=== PATIENT | male | born 1960 | race Caucasian/White ===

== ENCOUNTER 2017-01-29 08:14 | Observation (INO) | payer OTHER ==
--- NOTE | ~2017-01-29 | DS ---
PATIENT:DASHA BETH JR :64 MEDICAL RECORD: [id number] DISCHARGE SUMMARY ADMISSION DATE: 01/29/17 DISCHARGE DATE: DATE OF SERVICE: 01/30/2017 DIAGNOSES: 1. Angina. 2. Coronary artery disease. 3. PTCA and stent of RCA and left circumflex on this admission. HOSPITAL COURSE: Mr. Beth presents with anginal symptomatology, found to have 2-vessel coronary artery disease of the RCA and the left circumflex. He underwent successful PTCA and stent of above territories. Discharged home with the addition of aspirin and Plavix to his medical regimen. He will follow up with [facility] in one month. TRANSINT:[id number] Voice Confirmation ID: [id number] DOCUMENT ID: [id number] KAYLEN RAMIREZ MD CC: [id number] DICTATION DATE: 01/30/17 1024 DATABASE ADMIN: 01/30/17 1150 ADM IN [id number] [place] [address]
--- NOTE | ~2017-01-29 | HP ---
PATIENT: DASHA BETH JR MEDICAL RECORD: [id number] ACCOUNT: [id number] LOCATION:[address] : 64 ADMISSION DATE: 01/29/17 HISTORY AND PHYSICAL EXAMINATION DIAGNOSIS: Unstable angina. HISTORY OF PRESENT ILLNESS: This is a gentleman with no previous cardiac history. He began having chest pain, chest discomfort compatible with angina last night. His pain has persisted all evening. He presents to the Emergency Room, has ST-T abnormalities anteriorly. He continues to have episodes of chest pain. PHYSICAL EXAMINATION: GENERAL APPEARANCE: Well-nourished, well-developed, appears stated age. Level of distress, comfortable. PSYCHIATRIC: Mental status, alert, normal affect. Orientation, oriented to time, place and person. EYES: Lids and conjunctiva, noninjected. No discharge, no pallor. ENT: Lips, teeth, gums, normal dentition. Oropharynx, no cyanosis, no pallor. NECK: Carotid arteries, bilateral normal upstroke, no bruits, no thrills. JUGULAR VEINS: No jugular venous pressure or distention. CERVICAL LYMPH NODES: Nontender, nonenlarged. THYROID: Not enlarged. Nontender. No nodules. LUNGS: Respiratory effort, unlabored. CHEST: Normal curvature. No thoracic deformity. No chest wall tenderness. Percussion, resonant. Auscultation, clear. No wheezes, no rales, no rhonchi. CARDIOVASCULAR: Precordial exam, nondisplaced. No heaves or pericardial thrills. Rate and rhythm, regular. Heart sounds, normal S1, normal S2. No S3, no gallop, no rub. Systolic murmur, not heard. Diastolic murmur, not heard. EXTREMITIES: No cyanosis, no edema. Peripheral pulses, full and equal in all extremities, except as noted. No bruits appreciated. ABDOMEN: Soft, nondistended. Normal aorta. No bruit. Nontender. No masses. Liver, nontender, no hepatomegaly. Spleen, nontender, no splenomegaly. MUSCULOSKELETAL: No joint tenderness. No joint swelling. No erythema. NEUROLOGICAL: Normal gait, normal strength, normal tone. SKIN: Warm and dry. REVIEW OF SYSTEMS: The patient reports easy bruising but reports no swollen glands. The patient reports no fever, no night sweats, no significant weight gain, no significant weight loss. No significant exercise tolerance. The patient reports no dry eyes, no irritation, no vision change. Patient reports no difficulty hearing and no ear pain. Patient reports no frequent nose bleeds or nose and sinus problems. Patient reports no arm pain on exertion. No shortness of breath while lying down. No history of heart murmur. Patient reports no cough, no wheezing or coughing up blood. Patient reports no abdominal pain, no vomiting. Normal appetite. No diarrhea and not vomiting blood. No nausea and no constipation. Patient reports no incontinence. No difficulty urinating. No hematuria. No increased frequency. Patient reports no muscle aches. No weakness, no arthralgias, no back pain. No swelling of the extremities. Patient reports no abnormal mole, no jaundice, no rashes. Reports no loss of consciousness. No weakness and no numbness. No seizures, dizziness, or headaches. The patient reports no depression, no sleep disturbance, feeling safe in a relationship and no alcohol abuse. Patient reports on fatigue. Reports no runny nose or sinus pressure. No itching, no hives, and no frequent HISTORY AND PHYSICAL [id number] DASHA BETH JR sneezing. OVERALL IMPRESSION: Classic anginal chest discomfort in unstable fashion. We will proceed with coronary angiography. Further care depends upon findings of the angiography. TRANSINT:[id number] Voice Confirmation ID: [id number] DOCUMENT ID: [id number] KAYLEN RAMIREZ MD CC: [id number] DICTATION DATE: 01/29/17 1258 WAITANGI TRIBUNAL MEMBER: 01/29/17 1330 ADM IN [id number] [place] [address]
--- NOTE | ~2017-01-29 | OP ---
PATIENT NAME: DASHA BETH JR MEDICAL RECORD: [id number] :64 LOCATION:[address] ADMISSION DATE:01/29/17 SURGEON: KAYLEN RAMIREZ MD DATE OF OPERATION: 01/29/2017 PROCEDURES: 1. PTCA and stent, RCA. 2. Left heart catheterization. 3. Selective coronary angiography. 4. Left ventriculogram. INDICATION: Chest pain compatible with angina. PROCEDURE IN DETAIL: After informed consent was obtained and after detailed explanation of risks and benefits as well as alternative therapies, the patient elected to proceed with angiogram and angioplasty. The right radial area was prepped and draped in normal sterile fashion. The right radial artery was cannulated via modified Seldinger technique with placement of 6-Swedish sheath. All catheters were exchanged through this sheath. FINDINGS: The left ventriculogram was performed in standard 30-degree ARTEAGA view, revealed good cardiac wall motion throughout all segments. Overall ejection fraction estimated at 60%. SELECTIVE CORONARY ANGIOGRAPHY: 1. Left main shows no significant angiographic disease. 2. Left anterior descending has lzna-wi-atfunvuf irregularities, but no flow-limiting stenosis. 3. Left circumflex has 90% stenosis of first obtuse marginal to ramus intermedius. 4. Right coronary has a long area of 80% stenosis in the mid vessel. PTCA AND STENT OF THE RIGHT CORONARY: The stent used was 3.0 x 26-mm Integrity. Result was 0% residual stenosis. OVERALL IMPRESSION: Successful PTCA and stent of right coronary artery, going from 80% initial stenosis to 0% residual. PLAN: PTCA and stent of the ramus intermedius in the near future. 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
--- NOTE | ~2017-01-29 | HEMODYNAMI ---
PATIENT:DASHA BETH JR MEDICAL RECORD: [id number] : 64 LOCATION:[address] [facility]# [id number] ADMISSION DATE: 01/29/17 Generatedon:01/30/201710:25 Patient name: DASHA BETH Patient #: [id number] : 1960 Date of study: 01/30/2017 Page: Of Hemodynamic Procedure Report Patient Data Patient Demographics Procedure consent was obtained First Name: DASHA Gender: Male Last Name: KIRIT Suffix: Jr Coy Initial: Tomeka : 1960 Patient #: [id number] Age: 56 year(s) Race: SSN: [id number] Ethnicity: or Additional ID: [id number] Contact details Address: [address] [place] [address] State: [place] City: [facility] [place] Zip code: [address] Past Medical History Allergies: No known allergies Admission Admission Data Admission Date: 01/29/2017 Admission Time: 12:22 Admit Source: Other Room #: D.2122 Lab Results Lab Result Date: 01/29/2017 Lab Result Time: 0:00 Biochemistry Name Units Result Min Max BUN mg/dl 6 -*(----)-- 7 18 Creatinine mg/dl 1 --(--*-)-- 0.6 1.3 CBC Name Units Result Min Max Hemoglobin g/dl 16.2 --(--*-)-- 13.5 17.5 Procedure Procedure Types Cath Procedure PCI Procedure Coronary Stent Initial Miscellaneous Procedures Moderate Sedation up to 15 minutes Procedure Description Procedure Date Procedure Date: 01/30/2017 Procedure Start Time: 10:04 Procedure End Time: 10:23 Procedure Staff Name Function Duy Thomason MD Performing Physician Sean Fitzgerald RN Nurse Maribell Malloy RT Monitor Oscar Mtz RT Scrub Camille Schafer RT Scrub Procedure Data Cath Procedure Fluoroscopy Diagnostic fluoroscopy Total fluoroscopy Time: 6.9 time: 6.9 min min Diagnostic fluoroscopy Total fluoroscopy dose: 491 dose: 491 mGy mGy Contrast Material Contrast Material Type Amount (ml) Isovue 300 70 Entry Location Entry Primary Successful Side Size Upsize Upsize Entry Closure Succes sful Closure Location (Fr) 1 (Fr) 2 (Fr) Remarks Device Remarks Femoral Right 6 Fr Exoseal artery Short Estimated blood loss: 10 ml Procedure Complications No complications Procedure Medications Medication Administration Route Dosage 0.9% NaCl I.V. 100 ml/hr Oxygen NC 2 l/min Heparin Flush Bag added to field 2 bags (1000units/500ml NS) Lidocaine 2% added to field 20 Versed I.V. 1 mg Fentanyl I.V. 50 mcg Fentanyl I.V. 50 mcg Versed I.V. 1 mg Fentanyl I.V. 50 mcg Heparin Bolus I.V. 4000 units Nitroglycerin IC/IA I.C. 200 mcg Fentanyl I.V. 50 mcg Hemodynamics Rest HGB: 16.2 (g/dl) Heart Rate: 64 (bpm) Snapshots Pre Cath Intra NCS Post Cath Vital Signs Time Heart Resp SPO2 etCO2 [id number] NIBP (mmHg) Rhythm Pain Sedation Rate (ipm) (%) (mmHg) (mmHg) Status Level (bpm) 9:56:19 69 19 99 0 0 142/93(118) NSR 0 (11) 10(A) , No pain 10:00:59 70 26 97 0 0 130/81(102) NSR 0 (11) 10(A) , No pain 10:05:38 80 15 96 0 0 125/73(109) NSR 0 (11) 10(A) , No pain 10:10:16 75 14 92 0 0 116/70(90) NSR 0 (11) 9(A) , No pain 10:14:57 76 16 91 0 0 101/62(87) NSR 0 (11) 9(A) , No pain 10:19:31 90 15 89 0 0 114/74(87) NSR 0 (11) 10(A) , No pain Medications Time Medication Route Dose Verified Delivered Reason Notes Effectiveness by by 9:57:39 0.9% NaCl I.V. 100 Sean Sean Per physician ml/hr Lia Fitzgerald RN RN 9:57:51 Oxygen NC 2 Sean Sean Per physician l/min Lia Fitzgerald RN RN 9:58:07 Heparin Flush added 2 Sean Sean used for Bag to bags Lortatyana Fitzgerald procedure (1000units/500ml [facility] RN RN NS) 9:58:19 Lidocaine 2% added 20ml Sean Sean for local to vial Lortatyana Fitzgerald anesthetic field RN RN 9:58:44 Versed I.V. 1 mg Sean Sean for sedation Lia Fitzgerald RN RN 9:59:01 Fentanyl I.V. 50 Sean Sean for sedation mcg Lia Fitzgerald RN RN 10:05:23 Fentanyl I.V. 50 Sean Sean for sedation mcg Lia Fitzgerald RN RN 10:05:32 Versed I.V. 1 mg Sean Sean for sedation Lia Fitzgerald RN RN 10:06:16 Fentanyl I.V. 50 Sean Sean for sedation mcg Lia Fitzgerald RN RN 10:07:56 Heparin Bolus I.V. 4000 Sean Sean for units Lia Fitzgerald anticoagulation RN RN 10:10:37 Nitroglycerin I.C. 200 Sean Duy for IC/IA mcg Lia delgado RN 10:20:39 Fentanyl I.V. 50 Sean Duy for sedation sofiya Thomason MD, RN Procedure Log Time Note 9:35:31 Oscar Mtz RT(R) sent for patient. Start room use. 9:46:53 Admit Source: Other 9:50:39 Time tracking: Regular hours 9:50:42 Plan of Care:Hemodynamics will remain stable., Cardiac rhythm will remain stable., Comfort level will be maintained., Respiratory function will remain adequate., Patient/ family verbilizes understanding of procedure., Procedure tolerated without complication., Recovers from procedure without complications.. 9:50:48 Patient received from PCU to CCL 1 Alert and oriented. Tansferred to table in Supine position. 9:50:49 Warm blankets applied, and xenia hugger turned on for patient comfort. 9:50:49 Correct patient and procedure confirmed by team. 9:50:51 Signed procedure consent form obtained from patient. 9:50:51 ECG and BP/O2 sat monitors applied to patient. 9:55:24 Vital chart was started 9:55:26 Baseline sample Acquired. 9:55:32 Rhythm: sinus rhythm 9:55:34 Full Disclosure recording started 9:55:42 H&P Date Dictated: 01/29/2017 Within 30 days and on chart.. 9:55:43 Pre-procedure instructions explained to patient. 9:55:46 Family in patients room. 9:55:48 Patient NPO since Midnight. 9:55:57 Is the patient allergic to Iodine/contrast media? No. 9:56:01 Is patient on blood thinner?Yes 9:56:04 ACC The patient was administered the following blood thiners within the last 24 hours: ACCPlavix 9:56:10 Patient diabetic? No. 9:56:18 Snore? Yes 9:56:19 Sleep apnea? Yes 9:56:26 Airway obstruction? Yes COPD 9:56:30 Dentures? No ? 9:56:36 Patient pain scale 0/10 ?. 9:56:41 IV patent on arrival in left hand with 0.9% NaCl at KVO. 9:56:51 Lab results completed and on chart. 9:56:55 Right groin area was prepped with chlora-prep and draped in sterile fashion 9:56:56 Alarms reviewed by R. N. 9:56:57 Sharps counted by scrub and verified by R.N. 9:56:59 Physician paged 9:56:59 Physician arrived 9:57:00 --------ALL STOP TIME OUT------ 9:57:00 Final Timeout: patient, procedure, and site verified with staff and physician. All members of the team are in agreement. 9:57:02 Right groin site verified by team. 9:57:08 Sedation plan: IV Moderate Sedation Versed, Fentanyl 9:57:25 Use device set Femoral PCI 9:57:27 Acist Syringe opened to sterile field. 9:57:27 Acist Hand Control opened to sterile field. 9:57:28 Bag Decanter opened to sterile field. 9:57:28 Medline Cath Pack opened to sterile field. 9:57:28 Terumo 6Fr [place] Sheath opened to sterile field. 9:57:29 St Timbo 260cm J .035 wire opened to sterile field. 9:57:29 Merit BasixCompak Inflation Kit opened to sterile field. 9:57:30 Acist Manifold opened to sterile field. 9:57:30 Tegaderm 4 x 4 opened to sterile field. 9:57:39 0.9% NaCl 100 ml/hr I.V. was administered by Sean Fitzgerald RN; Per physician; 9:57:51 Oxygen 2 l/min NC was administered by Sean Fitzgerald RN; Per physician; 9:58:07 Heparin Flush Bag (1000units/500ml NS) 2 bags added to field was administered by Sean Fitzgerald RN; used for procedure; 9:58:19 Lidocaine 2% 20ml vial added to field was administered by Sean Fitzgerald RN; for local anesthetic; 9:58:44 Versed 1 mg I.V. was administered by Sean Fitzgerald RN; for sedation; 9:59:01 Fentanyl 50 mcg I.V. was administered by Sean Fitzgerald RN; for sedation; 9:59:05 Cordis 6FR XBLAD 3.5 guide catheter opened to sterile field. 9:59:55 Ramos Whisper J 300cm 0.014 guide wire opened to sterile field. 10:01:35 Zero performed for pressure channel P1 10:01:47 Zero performed for pressure channel P1 10:03:41 Procedure started. 10:04:23 Local anesthetic to right femoral artery with Lidocaine 2% by Duy Thomason MD.INITIAL ACCESS ONLY 10:04:35 A 6 Fr Short sheath was inserted into the Right Femoral artery 10:05:23 Fentanyl 50 mcg I.V. was administered by Sean Fitzgerald RN; for sedation; 10:05:32 Versed 1 mg I.V. was administered by Sean Fitzgerald RN; for sedation; 10:05:57 6 Fr XBLAD 3.5 guide catheter was inserted over the wire 10:06:16 Fentanyl 50 mcg I.V. was administered by Sean Fitzgerald RN; for sedation; 10:06:56 Whisper wire advanced. 10:07:56 Heparin Bolus 4000 units I.V. was administered by Sean Fitzgerald RN; for anticoagulation; 10:08:50 Inflation Number: 1 A NellOne Therapeuticstronic Integrity 2.5 x 14 stent was prepped and advanced across the Ramus. The stent was deployed at 11 BROOK for 0:10 (min:sec). 10:10:37 Nitroglycerin IC/IA 200 mcg I.C. was administered by Duy Thomason MD; for vasodilation; 10:11:12 Ramos Fielder XT J 300cm 0.014 guide wire opened to sterile field. 10:11:37 Fielder wire advanced. 10:12:46 Stent catheter was removed intact over wire. 10:14:54 Inflation number: 2 A Euphora 1.5 x 12 balloon was prepped and advanced across the Ramus, then inflated to 17 BROOK for 0:10 (min:sec). 10:15:06 Inflation number: 3 The Euphora 1.5 x 12 balloon was reinflated across the Ramus, to 21 BROOK for 0:10 (min:sec). 10:15:23 Balloon removed over the wire. 10:15:28 Stent balloon re-inserted over wire. 10:17:34 Inflation number: 4 The stent balloon was then re-inflated across the Ramus to 7 BROOK for 0:10 (min:sec). 10:18:55 Cordis 6Fr Exoseal opened to sterile field. 10:19:01 Wire removed. 10:19:01 Guide catheter removed. 10:19:11 Sheath removed intact; hemostasis achieved with Exoseal to the Right Femoral artery. 10:19:15 Procedure ended.(Physican Out) 10:20:10 Fluoroscopy time 06.90 minutes. 10:20:15 Flurop Dose total: 491 10:20:15 Fluoroscopy dose: 491 mGy 10:20:23 Contrast amount:Isovue 300 70ml. 10:20:25 Sharps counted by scrub and verified by R.N. 10:20:39 Fentanyl 50 mcg I.V. was administered by Duy Thomason MD; for sedation; 10:20:55 Insertion/operative site no bleeding no hematoma. 10:21:03 Post right femoral artery:stable 10:21:12 Post-procedure physical assessment completed. ASA score P 2 - A patient with mild systemic disease as per Duy Thomason MD. 10:21:20 Post procedure rhythm: unchanged. 10:21:40 Estimated blood loss: 10 ml 10:21:43 Post procedure instruction explained to patient.Patient verbalizes understanding. 10:22:12 Procedure and supply charges have been captured, reviewed, submitted and are correct. 10:22:58 Procedure Complication : No complications 10:23:01 Vital chart was stopped 10:23:02 See physician's report for complete and final results. 10:23:06 Report given to [facility]. 10:23:12 Patient transfered to [facility] with Bed. 10:23:15 Procedure ended. 10:23:15 Full Disclosure recording stopped 10:23:17 End room use (Document Last) 10:24:43 ACC-PCI Only Patient was given prescriptions, or instructed by Duy Thomason MD to start/continue the following medications upon discharge: Plavix Intervention Summary Intervention Notes Time ActionType Lesion and Equipment Action# Pressure Duration Attributes Used 10:08:50 Place stent Ramus Medtronic 1 11 00:10 Integrity 2.5 x 14 stent 10:14:54 Inflate Ramus Euphora 2 17 00:10 balloon 1.5 x 12 balloon 10:15:06 Reinflate Ramus Euphora 3 21 00:10 balloon 1.5 x 12 balloon 10:17:34 Reinflate Ramus Medtronic 4 7 00:10 stent Integrity balloon 2.5 x 14 stent Device Usage Item Name Manufacture Quantity Catalog Hospital Part Current Minimal L ot# / Number Charge Number Stock Stock Serial# Code Acist Acist 1 37597 [id number] 246398 087235 20 Syringe Medical Systems Inc Acist Hand Acist 1 45720 506811 625315 471837 5 Ocean Aero Medical Systems Inc Bag Microtek 1 2002S 502353 61810 219254 5 FarmDrop [employer] Inc. Medline Cardinal 1 [id number] 041607 44458 559517 5 Cath Pack Health Terumo 6Fr Terumo 1 [id number] 521181 558787 968121 [address] Timbo 1 584362 220645 898841 979238 30 260cm J .035 wire Merit Merit 1 [id number] 845588 797911 280955 15 BasixIngram Medical Medical Inflation Kit Acist Acist 1 80906 758471 998123 946272 5 Peacock Parade [employer] Inc Tegaderm 4 3M 1 1626W 949044 765216 488873 5 x 4 Cordis 6FR Cardinal 1 [id number] 686339 482284 866930 10 XBLAD 3.5 Health guide catheter Ramos Ramos 1 [id number] 956141 907483 191906 5 Whisper J Vascular 300cm 0.014 guide wire Medtronic Medtronic 1 [id number] 434733 082852 1 0 [id number] Integrity 2.5 x 14 stent Ramos Ramos 1 [id number] 552574 193596 990786 5 Fielder XT Vascular J 300cm 0.014 guide wire Euphora 1.5 Medtronic 1 [id number] 687876 603912 393262 5 2 [id number] x 12 balloon Cordis 6Fr Cardinal 1 EX600 345925 949505 363294 10 [facility] Signature Audit Bixby Stage Time Signature Unsigned Intra-Procedure 01/30/2017 Maribell Malloy 10:25:14 AM RT(R) Signatures Monitor : Maribell Malloy Signature : RT Date : Time : [id number] [place] [address]
--- NOTE | ~2017-01-29 | OP ---
PATIENT NAME: DASHA BETH JR MEDICAL RECORD: [id number] :64 LOCATION:[address] ADMISSION DATE:01/29/17 SURGEON: KAYLEN RAMIREZ MD DATE OF OPERATION: 01/30/2017 PROCEDURES: 1. PTCA and stent, left circumflex. 2. Selective coronary angiography. INDICATION: Angina and coronary artery disease. PROCEDURE IN DETAIL: After informed consent was obtained and after detailed explanation of risks and benefits as well as alternative therapies, the patient elected to proceed with angiogram and angioplasty. The right femoral area was prepped and draped in normal sterile fashion. The right femoral artery was cannulated via modified Seldinger technique with placement of 6-Nepali sheath. All catheters were exchanged through this sheath. FINDINGS: The left circumflex has a 90% stenosis in the ramus intermedius. This was addressed with a 2.5 x 14-mm Integrity stent. Result was 0% residual stenosis. OVERALL IMPRESSION: Successful PTCA and stent of the left circumflex, going from 90% initial stenosis to 0% residual stenosis. 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
--- NOTE | ~2017-01-29 | HEMODYNAMI ---
PATIENT:DASHA BETH JR MEDICAL RECORD: [id number] : 64 LOCATION:[address] [facility]# [id number] ADMISSION DATE: 01/29/17 Generatedon:01/29/201716:05 Patient name: DASHA BETH Patient #: [id number] : 1960 Date of study: 01/29/2017 Page: Of Hemodynamic Procedure Report Patient Data Patient Demographics Procedure consent was obtained First Name: DASHA Gender: Male Last Name: KIRIT Suffix: Jr Coy Initial: Tomeka : 1960 Patient #: [id number] Age: 56 year(s) Race: SSN: [id number] Ethnicity: or Additional ID: [id number] Contact details Address: [address] [place] [address] State: [place] [facility] [place]: [address] Past Medical History Allergies: No known allergies Admission Admission Data Admission Date: 01/29/2017 Admission Time: 12:22 Room #: D.2122 Lab Results Lab Result Date: 01/29/2017 Lab Result Time: 0:00 Biochemistry Name Units Result Min Max BUN mg/dl 6 -*(----)-- 7 18 Creatinine mg/dl 1 --(--*-)-- 0.6 1.3 CBC Name Units Result Min Max Hemoglobin g/dl 16.2 --(--*-)-- 13.5 17.5 Procedure Procedure Types Cath Procedure Diagnostic Procedure LHC LH w/Coronaries PCI Procedure Coronary Stent Initial Miscellaneous Procedures Moderate Sedation up to 15 minutes Procedure Description Procedure Date Procedure Date: 01/29/2017 Procedure Start Time: 15:47 Procedure End Time: 16:00 Procedure Staff Name Function Anabela Ramos RT Scrub Lavinia Elkins RN Nurse Duy Thomason MD Performing Physician Ken Kinney RT Monitor Procedure Data Cath Procedure Fluoroscopy Diagnostic fluoroscopy Total fluoroscopy Time: 2.8 time: 2.8 min min Diagnostic fluoroscopy Total fluoroscopy dose: 282 dose: 282 mGy mGy Contrast Material Contrast Material Type Amount (ml) Isovue 300 98 Entry Location Entry Primary Successful Side Size Upsize Upsize Entry Closure Zhao ccessful Closure Location (Fr) 1 (Fr) 2 (Fr) Remarks Device Remarks Radial Right 6 Fr Mechanical artery Short Compression Estimated blood loss: 10 ml Diagnostic catheters Device Type Used For End Catheter Placement Diagnostic Terumo 5Fr Procedure [place] 110cm catheter Procedure Complications No complications Procedure Medications Medication Administration Route Dosage Oxygen NC 2 l/min Lidocaine 2% added to field 20 Heparin Flush Bag added to field 2 bags (1000units/500ml NS) 0.9% NaCl I.V. 100 ml/hr Versed I.V. 1 mg Fentanyl I.V. 50 mcg Radial Cocktail I.A. 1 syringe (Verapomil 2mg/Nitro 400mcg/Heparin 1500units) Versed I.V. 1 mg Fentanyl I.V. 50 mcg Heparin Bolus I.V. 4000 units Nitroglycerin IC/IA I.C. 150 mcg Integrilin (Bolus I.V. 6.2 ml 2mg/ml) Nitroglycerin IC/IA I.C. 100 mcg Versed I.V. 1 mg Fentanyl I.V. 50 mcg Plavix P.O. 600 mg Hemodynamics Rest HGB: 16.2 (g/dl) Heart Rate: 67 (bpm) Snapshots Pre Cath Intra NCS Post Cath Vital Signs Time Heart Resp SPO2 NIBP (mmHg) Rhythm Pain Sedation Rate (ipm) (%) Status Level (bpm) 15:32:27 67 17 99 148/85(107) NSR 0 (11) 10(A) , No pain 15:36:45 69 15 100 137/81(100) NSR 0 (11) 10(A) , No pain 15:40:59 73 15 97 119/74(90) NSR 0 (11) 10(A) , No pain 15:46:04 68 17 98 115/75(91) NSR 0 (11) 10(A) , No pain 15:50:16 81 14 94 102/58(71) NSR 0 (11) 9(A) , No pain 15:54:22 77 15 93 111/63(81) NSR 0 (11) 9(A) , No pain 15:58:28 85 16 95 108/65(93) NSR 0 (11) 10(A) , No pain Medications Time Medication Route Dose Verified Delivered Reason Note s Effectiveness by by 15:32:17 Oxygen NC 2 l/min Duy Buffie used for Katelin Elkins RN procedure 15:38:55 Lidocaine 2% added 20ml Duy Gordillo used for to vial Katelin Thomason MD procedure field 15:39:02 Heparin Flush added 2 bags Duy Gordillo used for Bag to Katelin Thomason MD procedure (1000units/500ml field NS) 15:39:12 0.9% NaCl I.V. 100 Duy Buffie Per physician ml/hr Katelin Elkins RN 15:44:14 Versed I.V. 1 mg Duy Buffie for sedation Katelin Elkins RN 15:44:21 Fentanyl I.V. 50 mcg Duy Buffie for sedation Katelin Elkins RN 15:49:26 Radial Cocktail I.A. 1 Duy Duy for (Verapomil syringe Katelin Thomason MD vasodilation 2mg/Nitro 400mcg/Hepari 15:49:33 Versed I.V. 1 mg Duy Buffie for sedation Katelin Elkins RN 15:49:37 Fentanyl I.V. 50 mcg Duy Tomasie for sedation Katelin Elkins RN 15:51:37 Heparin Bolus I.V. 4000 Duy Buffie for veri fied units Katelin Elkins RN anticoagulation with dr thomason 15:53:31 Integrilin I.V. 6.2 ml Duy Buffie for wast ed (Bolus 2mg/ml) Katelin Elkins RN antiplatelet 3.8 ml therapy of vial 15:55:21 Nitroglycerin I.C. 150 mcg Duy Gordillo for IC/IA Katelin Thomason MD vasodilation 15:56:44 Nitroglycerin I.C. 100 mcg Duy Gordillo for IC/IA Katelin Thomason MD vasodilation 15:58:39 Versed I.V. 1 mg Duy Buffie for sedation Katelin Elkins RN 15:58:43 Fentanyl I.V. 50 mcg Duy Tomasie for sedation Katelin Elkins RN 16:01:57 Plavix P.O. 600 mg Duy Tomasie for Katelin Elkins RN antiplatelet therapy Procedure Log Time Note 15:05:02 Informed consent obtained and on chart 15:05:14 Diagnostic Cath Status : Elective 15:06:08 Constantine Nguyễn RN sent for patient. Start room use. 15:06:09 Time tracking: Regular hours 15::14 Plan of Care:Hemodynamics will remain stable., Cardiac rhythm will remain stable., Comfort level will be maintained., Respiratory function will remain adequate., Patient/ family verbilizes understanding of procedure., Procedure tolerated without complication., Recovers from procedure without complications.. 15:07:04 Lab Result : Hemoglobin 16.2 g/dl 15:07:04 Lab Result : Creatinine 1 mg/dl 15:07:04 Lab Result : BUN 6 mg/dl 15:20:29 Patient received from PCU to CCL 2 Alert and oriented. Tansferred to table in Supine position. 15:20:30 Correct patient and procedure confirmed by team. 15:20:30 Warm blankets applied, and xenia hugger turned on for patient comfort. 15:20:32 ECG and BP/O2 sat monitors applied to patient. 15:20:38 H&P Date Dictated: 01/29/2017 New H&P dictated by physician.. 15:20:40 Pre-op teaching completed and patient verbalized understanding. 15:20:40 Pre-procedure instructions explained to patient. 15:20:42 Family in patients room. 15:20:44 Patient NPO since Breakfast. 15:20:51 Patient allergic to No known allergies 15:20:53 Is the patient allergic to Iodine/contrast media? No. 15:21:06 Is patient on blood thinner?No 15:21:10 Patient diabetic? No. 15:21:13 Previous problem with sedation/anesthesia? No ? 15:21:14 Snore? Yes 15:21:15 Deviated septum? No 15:21:15 Sleep apnea? Yes 15:21:16 Opens mouth fully? Yes 15:21:17 Sticks out tongue? Yes 15:21:21 Airway obstruction? Yes COPD 15:21:29 Dentures? No ? 15:23:50 Modified Ryan's test Ulnar < 7 seconds 15:23:53 Patient pain scale 0/10 ?. 15:24:06 IV patent on arrival in left antecubital with 0.9% NaCl at O. 15:24:10 Lab results completed and on chart. 15:24:15 Right Radial & Right Groin area was prepped with chlora-prep and draped in sterile fashion 15:24:16 Sharps counted by scrub and verified by R.N. 15:24:16 Alarms reviewed by R. N. 15:24:18 Use device set Radial Dx 15:24:19 MBrace Wrist Support opened to sterile field. 15:24:20 Acist Hand Control opened to sterile field. 15:24:20 Acist Manifold opened to sterile field. 15:24:21 Tegaderm 4 x 4 opened to sterile field. 15:24:22 Medline Cath Pack opened to sterile field. 15:24:22 Acist Syringe opened to sterile field. 15:24:23 Terumo 6Fr Slender Glidesheath opened to sterile field. 15::23 Bag Decanter opened to sterile field. 15:24:24 St Timbo 260cm J .035 wire opened to sterile field. 15:31: Vital chart was started 15:: Baseline sample Acquired. 15:: Rhythm: sinus rhythm 15:: Full Disclosure recording started 15:32:17 Oxygen 2 l/min NC was administered by Lavinia Elkins RN; used for procedure; 15:38:55 Lidocaine 2% 20ml vial added to field was administered by Duy Thomason MD; used for procedure; 15:39:02 Heparin Flush Bag (1000units/500ml NS) 2 bags added to field was administered by Duy Thomason MD; used for procedure; 15:39:12 0.9% NaCl 100 ml/hr I.V. was administered by Lavinia Elkins RN; Per physician; :31 --------ALL STOP TIME OUT------ 15:42:31 Physician arrived 15:42:32 Final Timeout: patient, procedure, and site verified with staff and physician. All members of the team are in agreement. 15:42:34 Right Radial & Right Groin site verified by team. 15:42:36 Physical assessment completed. ASA score P 2 - A patient with mild systemic disease as per Duy Thomason MD. 15:42:39 Sedation plan: IV Moderate Sedation Versed, Fentanyl 15:43:59 Zero performed for pressure channel P1 15:44:03 Zero performed for pressure channel P1 15:44:05 Zero performed for pressure channel P1 15:44:08 Zero performed for pressure channel P1 15:44:14 Versed 1 mg I.V. was administered by Lavinia Elkins RN; for sedation; 15:44:15 Zero performed for pressure channel P1 15:44:21 Fentanyl 50 mcg I.V. was administered by Lavinia Elkins RN; for sedation; 15:44:25 Zero performed for pressure channel P1 15:47:21 Procedure started. 15:47:27 Local anesthetic to right radial artery with Lidocaine 2% by Duy Thomason MD.INITIAL ACCESS ONLY 15:47:34 A 6 Fr Short sheath was inserted into the Right Radial artery 15:48:46 A Diagnostic [employer] 5Fr [place] 110cm catheter was advanced over the wire and used for Procedure. 15:49:25 LV gram done using ARTEAGA 15:49:26 Injector settings: Ml/sec: 5, Volume: 15, 15:49:26 Radial Cocktail (Verapomil 2mg/Nitro 400mcg/Heparin 1500units) 1 syringe I.A. was administered by Duy Thomason MD; for vasodilation; 15:49:33 Versed 1 mg I.V. was administered by Lavinia Elkins RN; for sedation; 15:49:37 Fentanyl 50 mcg I.V. was administered by Lavinia Elkins RN; for sedation; 15:50:02 EF : 60 % 15:50:10 LCA angiography performed. 15:50:42 Ramos SpeechViveisper J 300cm 0.014 guide wire opened to sterile field. 15:50:42 itzbig BasixCompak Inflation Kit opened to sterile field. 15:51:36 RCA angiography performed. 15:51:37 Heparin Bolus 4000 units I.V. was administered by Lavinia Elkins RN; for anticoagulation; verified with dr thomason 15:51:37 Catheter removed. 15:51:46 Medtronic Launcher 6Fr AR 2.0 guide catheter opened to sterile field. 15:51:55 6 Fr AR 2 guide catheter was inserted over the wire 15:52:03 DragonflyPER wire advanced. 15:53:31 Integrilin (Bolus 2mg/ml) 6.2 ml I.V. was administered by Lavinia Elkins RN; for antiplatelet therapy; wasted 3.8 ml of vial 15:53:49 Wire advanced across lesion. 15:54:18 Inflation Number: 1 A Medtronic Integrity 3.0 X 26 stent was prepped and advanced across the Mid RCA. The stent was deployed at 15 BROOK for 0:10 (min:sec). 15:55:08 Wire removed. 15:55:08 Stent catheter was removed intact over wire. 15:55:21 Nitroglycerin IC/IA 150 mcg I.C. was administered by Duy Thomason MD; for vasodilation; 15:56:44 Nitroglycerin IC/IA 100 mcg I.C. was administered by Duy Thomason MD; for vasodilation; 15:57:09 Timer 1 started at 3:56 PM, stopped at 3:57 PM, duration 00:00:25 sec. 15:57:25 Guide catheter removed. 15:57:35 Terumo TR Band Standard opened to sterile field. 15:57:41 Sheath removed intact; hemostasis achieved with Mechanical Compression to the Right Radial artery. 15:57:43 Procedure ended.(Physican Out) 15:58:28 Fluoroscopy time 02.80 minutes. 15:58:33 Fluoroscopy dose: 282 mGy 15:58:33 Flurop Dose total: 282 15:58:37 Contrast amount:Isovue 300 98ml. 15:58:39 Sharps counted by scrub and verified by R.N. 15:58:39 Versed 1 mg I.V. was administered by Lavinia Elkins RN; for sedation; 15:58:41 TR band inflated with 11cc of air. 15:58:42 Insertion/operative site no bleeding no hematoma. 15:58:43 Fentanyl 50 mcg I.V. was administered by Lavinia Elkins RN; for sedation; 15:58:48 Post Procedure Pulses reassessed and unchanged 15:59:06 Post right radial artery:stable, soft, clean and dry 15:59:09 Post-procedure physical assessment completed. ASA score P 2 - A patient with mild systemic disease as per Duy Thomason MD. 15:59:12 Post procedure rhythm: unchanged. 15:59:15 Estimated blood loss: 10 ml 15:59:17 Post procedure instruction explained to patient.Patient verbalizes understanding. 15:59:18 Patient needs reinforcement of post procedure teaching. 15:59:35 Procedure type changed to Cath procedure, Diagnostic procedure, LHC, LHC w/Coronaries, PCI procedure, Coronary Stent Initial, Miscellaneous Procedures, Moderate Sedation up to 15 minutes 16:00:16 Procedure and supply charges have been captured, reviewed, submitted and are correct. 16:00:18 Procedure Complication : No complications 16:00:39 See physician's report for complete and final results. 16:00:39 Vital chart was stopped 16:00:40 Report given to PCU. 16:00:42 Patient transfered to PCU with Stretcher. 16:00:48 Full Disclosure recording stopped 16:00:48 Procedure ended. 16:00:54 End room use (Document Last) 16:01:57 Plavix 600 mg P.O. was administered by Lavinia Elkins RN; for antiplatelet therapy; Intervention Summary Intervention Notes Time ActionType Lesion and Equipment Action# Pressure Duration Attributes Used 15:54:18 Place stent Mid RCA Medtronic 1 15 00:10 Integrity 3.0 X 26 stent Device Usage Item Name Manufacture Quantity Catalog Hospital Part Current Minimal Lot# / Number Charge Number Stock Stock Serial# Code [facility] 1 140-0250-00 [id number] 85257 [id number] 5 Wrist Vascular Support Dynamics Acist Acist 1 58839 777009 650114 399019 5 Manifold Medical Systems Inc Acist Hand Acist 1 27917 556559 960998 527837 5 Control Medical Systems Inc Tegaderm 4 3M 1 [id number] 543495 336801 286549 5 x 4 Acist Acist 1 56721 439728 226586 493533 20 Syringe Medical Systems Inc Medline Cardinal 1 [id number] 068185 05871 089629 5 Cath Pack Health Bag Microtek 1 2002S 641116 14554 933952 5 Abazab [employer] Inc. Terumo 6Fr Terumo 1 [id number] 830308 375195 949929 [address] St Timbo 1 [id number] 633586 685249 918786 30 260cm J .035 wire Diagnostic Terumo 1 [id number] 851646 643260 226585 5 Terumo 5Fr [place] 110cm catheter Merit Merit 1 [id number] 659622 887466 137938 15 BasixVertive ([email or web address])k Medical Inflation Kit Ramos Ramos 1 [id number] 458284 784865 070228 5 Whisper J Vascular 300cm 0.014 guide wire Medtronic Medtronic 1 [id number] 040957 11914 819972 1 Launcher 6Fr AR 2.0 guide catheter Medtronic Medtronic 1 [id number] 655193 931610 1 [id number] Integrity 3.0 X 26 stent Terumo TR Terumo 1 [id number] 476041 835465 231974 40 Band Standard Signature Audit [place] Stage Time Signature Unsigned Intra-Procedure 01/29/2017 Ken Kinney RT(R) 4:02:22 PM RT(R) 01/29/2017 4:04:01 PM Intra-Procedure 01/29/2017 Ken Kinney 4:05:40 PM RT(R) Signatures Monitor : Ken Kinney RT Signature : Date : Time : [place] [id number] [place] [address]
[2017-01-29 09:02] LABS: BASOPHILS 0.4 % (0-2); EOSINOPHILS 3.6 % (0-7); HEMATOCRIT 46.2 % (42.0-54.0); HEMOGLOBIN 16.2 g/dL (13.5-17.5); IMMATURE GRANULOCYTES 0.3 % (0-5); LYMPHOCYTES 22.8 % (15-50); MCH 34.5 pg (26.0-34.0); MCHC 35.1 g/dL (31.0-37.0); MCV 98.3 fL (80.0-100.0); MEAN PLATELET VOLUME 10.3 fL (7.4-10.4); MONOCYTES 8.8 % (2-11); NEUTROPHILS 64.1 % (40-80); PLATELET COUNT 196 10x3/uL (130-400); RDW 12.3 % (11.5-14.5)
[2017-01-29 09:19] LABS: ALBUMIN 3.8 g/dL (3.4-5.0); ALKALINE PHOSPHATASE 68 U/L (46-116); ALT (SGPT) 28 U/L (10-68); CALC OSMOLALITY 283 mosm/kg (275-300); CALCIUM 8.9 mg/dL (8.5-10.1); CARBON DIOXIDE 28.2 mmol/L (21.0-32.0); CHLORIDE - SERUM 107 mmol/L (98-107); GLUCOSE 77 mg/dL (74-106); POTASSIUM - SERUM 3.7 mmol/L (3.5-5.1); PROTEIN - SERUM 7.2 g/dL (6.4-8.2); SODIUM 144 mmol/L (136-145); UREA NITROGEN 6 mg/dL (7-18); eGFR NON AFRICAN AMERICAN 83 mL/min (90-120)
[2017-01-29 09:22] LABS: CREATINE KINASE 99 UL (21-232)
[2017-01-29 09:28] LABS: TROPONIN-I < 0.017 ng/mL (0.000-0.060)
[2017-01-29] MEDS ORDERED: CARTIA XT240 MG PO (13:37)
--- NOTE | 2017-01-29 13:47 | NUR ---
ADMITTED FROM ER. ALERT ORIENTED. TELEMERTY SHOWS SR. IV TO LEFT ARM. V/S STABLE. NPO FOR KILN FIRER.
[2017-01-29 17:14] VITALS: BP 141/93
[2017-01-29 19:00] VITALS: BP 134/85
--- NOTE | 2017-01-29 19:14 | NUR ---
TR BAND WITH 5CC REMIOVED. NO BLEEDING NOTED. TELEMERTY SHOWS SR
[2017-01-30] VITALS: BP 147/90
[2017-01-30 04:00] VITALS: BP 145/97
[2017-01-30 08:25] VITALS: BP 144/89
--- NOTE | 2017-01-30 09:15 | NUR ---
PREOP MEDS ADMINISTERED AT THIS TIME. NO DISTRESS.
--- NOTE | 2017-01-30 10:32 | NUR ---
RETURNED FROM [facility].
--- NOTE | 2017-01-30 10:54 | NUR ---
RESTING IN BED WITH EYES CLOSED. EASILY AROUSED. PERIPHERAL PULSES PATENT. NO BLEEDING FROM RIGHT GROIN. DRESSING CLEAN DRY AND INTACT. IV FLUIDS INFUSING ORDERED. NO DISTRESS. FEMALE VISITOR AT BEDSIDE. CALL LIGHT WITHIN REACH.
[2017-01-30] MEDS ORDERED: ASPIRIN81 MG PO (12:08)
[2017-01-30] MEDS ORDERED: PLAVIX75 MG PO (12:09)
[2017-01-30 12:12] VITALS: BP 113/72
--- NOTE | 2017-01-30 12:41 | NUR ---
SODA PROVIDED UPON REQUEST. PERIPHERAL PULSES PATENT. NO BLEEDING OR HEMATOMA FORMATION FROM RIGHT GROIN. NO DISTRESS. CONSUMING FINGERFOODS AT THIS TIME.
--- NOTE | 2017-01-30 15:11 | NUR ---
1450 20 GAUGE REMOVED FROM LEFT WRIST. CATHETER TIP INTACT. NO BLEEDING FROM SITE. 2X2 GAUZE APPLIED AND SECURED WITH TAPE. TOLERATED IV REMOVAL WELL HE IS BEING DISCHARGED TO HOME. 1500 DISCHARGE INSTRUCTIONS PROVIDED, PRESCRIPTION GIVEN FOR PLAVIX. WORK RELEASE PROVIDED. TELEMETRY REMOVED.
--- NOTE | 2017-01-30 15:21 | NUR ---
PATIENT LEFT UNIT VIA WHEELCHAIR WITH ALL PERSONAL BELONGINGS. PATIENT IN NO DISTRESS UPON LEAVING UNIT. PATIENT DISCHARGED TO HOME.
== END 2017-01-30 15:23 | disposition home or self-care (01) ==
LOC: D.ER 08:14 → OBSVTIME 12:22 → D.M2 12:22
PROVIDERS: Emergency Medicine; ADMIT Internal Medicine Interventional Cardiology
DX: I25.10 Atherosclerotic heart disease of native coronary artery without angina pectoris (principal)

== ENCOUNTER 2017-02-26 05:36 | Emergency (ER) | payer OTHER ==
[~2017-02-26 05:36] MED LIST: ASPIRIN81 MG PO; CARTIA XT240 MG PO; PLAVIX75 MG PO
== END 2017-02-26 06:08 | disposition home or self-care (01) ==
LOC: D.ER 05:36
DX: G62.9 Polyneuropathy, unspecified (principal); F17.200 Nicotine dependence, unspecified, uncomplicated

== ENCOUNTER 2018-08-29 09:13 | Emergency (ER) | payer OTHER ==
[~2018-08-29] VITALS: Ht 175.3 cm; Wt 72.7 kg
[2018-08-29 09:15] VITALS: Ht 175.3 cm; Wt 72.7 kg
[2018-08-29] MEDS ORDERED: ULTRAM50 MG PO (10:24)
[2018-08-29] MEDS ORDERED: ROBAXIN500 MG PO (10:24)
[2018-08-29 10:44] VITALS: BP 128/86
== END 2018-08-29 10:46 | disposition home or self-care (01) ==
LOC: D.ER 09:13
DX: S39.012A Strain of muscle, fascia and tendon of lower back, initial encounter (principal); M54.5 Low back pain

== ENCOUNTER 2019-09-16 09:01 | Emergency (ER) | payer BC ==
[~2019-09-16] VITALS: Ht 175.3 cm; Wt 65.9 kg
[~2019-09-16 09:01] MED LIST changes: +ROBAXIN500 MG PO; +ULTRAM50 MG PO
[2019-09-16 09:10] VITALS: Ht 175.3 cm; Wt 65.9 kg
[2019-09-16] MEDS ORDERED: ULTRAM50 MG PO (09:48)
[2019-09-16] MEDS ORDERED: NAPROSYN500 MG PO (09:48)
[2019-09-16] MEDS ORDERED: STERAPRED DS 1010 MG PO (09:48)
[2019-09-16 10:13] VITALS: BP 138/85
== END 2019-09-16 10:13 | disposition home or self-care (01) ==
LOC: D.ER 09:01
DX: M54.30 Sciatica, unspecified side (principal); Z86.73 Personal history of transient ischemic attack (TIA), and cerebral infarction without residual deficits; I10 Essential (primary) hypertension; J44.9 Chronic obstructive pulmonary disease, unspecified; Z72.0 Tobacco use; M79.604 Pain in right leg